=== PATIENT | male | born 1990 | race Caucasian/White ===

== ENCOUNTER 2016-07-06 15:36 | Emergency (ER) | payer SELFPAY ==
[2016-07-06 15:47] VITALS: BP 163/67; PULSE 68; TEMP 98.5; BMI 33.7
--- NOTE | 2016-07-06 16:59 | PDOC ---
History of Present Illness - General Chief Complaint: Injury Stated Complaint: LT HAND PAIN Time Seen by Provider: 07/06/16 16:06 History Source: Patient Exam Limitations: No Limitations - History of Present Illness Initial Comments: 07/06/16 16:54 CC left hand painx 2 days post hearing snap in area of pain while wt lifting Occurred: reports: yesterday Severity: reports: mild Past History - Past Medical History Allergies/Adverse Reactions: Allergies Allergy/AdvReac Type Severity Reaction Status Date / Time No Known Allergies Allergy Verified 07/06/16 15:43 Home Medications: Ambulatory Orders No Home Medications 0 dose .ROUTE UTDICT 07/27/13 Ciprofloxacin [Cipro -] 500 mg PO Q12H #10 tablet 09/02/14 - Psycho/Social/Smoking Cessation Hx Anxiety: No Suicidal Ideation: No Smoking History: Current every day smoker Number of Cigarettes Smoked Daily: 3 Information on smoking cessation initiated: No Hx Alcohol Use: No Review of Systems - Review of Systems Constitutional: No: Chills, Fever, Malaise HEENTM: No: Symptoms Reported Respiratory: No: Symptoms reported, Cough Cardiac (ROS): No: Symptoms Reported ABD/GI: No: Symptoms Reported : No: Symptoms Reported Musculoskeletal: No: Symptoms Reported *Physical Exam - Vital Signs Last Vital Signs Temp Pulse Resp BP Pulse Ox 98.5 F 68 18 163/67 98 07/06/16 15:44 07/06/16 15:44 07/06/16 15:44 07/06/16 15:44 07/06/16 15:44 - Physical Exam General Appearance: Yes: Appropriately Dressed. No: Apparent Distress HEENT: negative: TMs Normal, Pharynx Normal Neck: positive: Supple. negative: Tender, Rigid Respiratory/Chest: positive: Lungs Clear Musculoskeletal: positive: Other (tender to area of 4th/5th MCs mid shaft with STS; flexion with some pain to area; nl extension) ED Treatment Course - RADIOLOGY Radiology Studies Ordered: Category Date Time Status HAND- LEFT [RAD] Stat Radiology 07/06/16 16:12 Completed Medical Decision Making - Medical Decision Making 07/06/16 16:58 xray read as negative; will splint x 3 days and re exam by ortho/ Dr Taylor *DC/Admit/Observation/Transfer Diagnosis at time of Disposition: Strain of hand, left Qualifiers: Encounter type: initial encounter Qualified Code(s): S66.912A - Strain of unspecified muscle, fascia and tendon at wrist and hand level, left hand, initial encounter - Discharge Dispostion Disposition: HOME Condition at time of disposition: Stable Admit: No - Referrals Referrals: Viola Pimentel MD [Primary Care Provider] - Christiano Taylor MD [Staff Physician] - - Patient Instructions Additional Instructions: wear splint x 3 days; see Dr Taylor oon Tuesday for reexam
== END 2016-07-06 17:06 | disposition home or self-care (01) ==
LOC: JERFT 15:36
PROC: 2W3DX1Z Immobilization of Left Lower Arm using Splint (ICD-10-PCS; principal; 2016-07-06)
DX: S66.812A Strain of other specified muscles, fascia and tendons at wrist and hand level, left hand, initial encounter (principal); X50.0XXA Overexertion from strenuous movement or load, initial encounter; Y93.B3 Activity, free weights; Y92.89 Other specified places as the place of occurrence of the external cause; Y99.8 Other external cause status; F17.210 Nicotine dependence, cigarettes, uncomplicated
CPT/HCPCS: 73130-TC-LT; 99281-25

== ENCOUNTER 2017-05-01 10:21 | Emergency (ER) | payer OTHER ==
[2017-05-01 10:30] VITALS: TEMP 98.3; BMI 33.0
--- NOTE | 2017-05-01 11:01 | PDOC ---
History of Present Illness - General Chief Complaint: Pain Stated Complaint: NAUSEA/VOMITING Time Seen by Provider: 05/01/17 10:42 - History of Present Illness Initial Comments: 05/01/17 10:57 26 y.o. male with no reported PMH presents with 1 day h/o of 4 episodes of NBNB emesis. Patient denies any associated abdominal cramping, fevers/chills but does note an episode of loose stools this morning prior to presentation. Patient denies any testicular/scrotal pain and dysuria/hematuria. Patient has been tolerating PO intake. Patient states he had huertas last night for dinner and he believes this is cause of his symptoms. Patient note a prior episode of similar symptoms associated with his huertas consumption. NKDA Surgical: denies Social: 1/2-1 ppd, denies alcohol, denies alcohol, denies recreational drugs Past History - Past Medical History Allergies/Adverse Reactions: Allergies Allergy/AdvReac Type Severity Reaction Status Date / Time No Known Allergies Allergy Verified 05/01/17 10:27 Home Medications: Ambulatory Orders No Home Medications 0 dose .ROUTE UTDICT 07/27/13 COPD: No DVT: No - Suicide/Smoking/Psychosocial Hx Smoking History: Current every day smoker Have you smoked in the past 12 months: No Number of Cigarettes Smoked Daily: 6 Information on smoking cessation initiated: Yes 'Breaking Loose' booklet given: 05/01/17 Hx Alcohol Use: No Drug/Substance Use Hx: No Substance Use Type: None Review of Systems - Review of Systems Constitutional: No: Chills, Fever HEENTM: No: Recent change in vision Respiratory: No: Cough, Shortness of Breath Cardiac (ROS): No: Chest Pain, Lightheadedness, Palpitations, Syncope ABD/GI: Yes: Vomiting *Physical Exam - Vital Signs Last Vital Signs Temp Pulse Resp BP Pulse Ox 98.3 F 73 18 128/66 100 05/01/17 10:27 05/01/17 10:27 05/01/17 10:27 05/01/17 10:27 05/01/17 10:27 - Physical Exam General Appearance: Yes: Nourished, Appropriately Dressed HEENT: positive: EOMI, ROBERTO Neck: positive: Trachea midline, Supple Respiratory/Chest: positive: Lungs Clear Cardiovascular: positive: S1, S2 Gastrointestinal/Abdominal: positive: Normal Bowel Sounds, Tender (roving abdominal tenderness on deep palpation), Soft. negative: Distended, Guarding, Rebound, Tenderness, Hernia, Mass Extremity: positive: Normal Capillary Refill, Normal Inspection Integumentary: positive: Normal Color, Dry, Warm Neurologic: positive: Fully Oriented, Alert ED Treatment Course - LABORATORY CBC & Chemistry Diagram: 05/01/17 11:25 05/01/17 11:25 Medical Decision Making - Medical Decision Making 05/01/17 11:24 26 y.o. male presents with multiple episodes of NBNB emesis. Abdominal U/S shows possible fatty liver disease c/w patient's complaint of heavy fat consumption. Will discharge patient home with return precautions and instruction to f/u with PMD. *DC/Admit/Observation/Transfer Diagnosis at time of Disposition: Vomiting - Discharge Dispostion Disposition: HOME Condition at time of disposition: Good Admit: No - Referrals - Patient Instructions Printed Discharge Instructions: DI for Nausea -- Adult Additional Instructions: You were evaluated today for vomiting. An ultrasound of your abdomen showed concerning findings, however we recommend you limit alcohol consumption and stop smoking. Please make an appointment with your primary care doctor in the next 24-48 hours. Return to the Emergency Department for any new/worsening/ concerning symptoms. - Post Discharge Activity
[2017-05-01] MEDS ORDERED: ONDANSETRON 4 MG/2 ML VIAL IVPUSH ONE (11:04)
[2017-05-01] MEDS ORDERED: SODIUM CHLORIDE 0.9% 500 ML INFUS.BAG IV ONE (11:06)
[2017-05-01] MEDS ORDERED: ONDANSETRON 4 MG/2 ML VIAL ONE (11:32)
[2017-05-01 11:36] LABS: BASO % 0.4 % (0-2.0); EOS % 1.6 % (0-4.5); HEMATOCRIT 43.1 % (35.4-49); HEMOGLOBIN 14.9 GM/dL (11.7-16.9); LYMPH % 31.7 % (8-40); MCH 31.1 pg (25.7-33.7); MCHC 34.5 g/dl (32.0-35.9); MEAN CELL VOLUME 90.3 fl (80-96); MEAN PLT VOLUME 7.7 fl (7.5-11.1); NEUT % 59.3 % (42.8-82.8); PLATELET COUNT 262 K/MM3 (134-434); RBC 4.78 M/mm3 (4.00-5.60); RDW 12.7 % (11.9-15.9); WHITE BLOOD COUNT 6.2 K/mm3 (4.0-10.0)
--- NOTE | 2017-05-01 11:47 | PDOC ---
Attending Attestation - Resident Resident Name: Giulia Pablo - ED Attending Attestation I have performed the following: I have examined & evaluated the patient, The case was reviewed & discussed with the resident, I agree w/resident's findings & plan, Exceptions are as noted - HPI HPI: 26 yo M no significant PMH presents with abd cramping, N/V/D since last night. He states he had similar symptoms with food poisoning in the past. He states he went to a new restaurant last night, had a dish that is oily, now with diffuse abd cramping. He had NBNB vomiting, loose stools all night. No fever. No known sick contacts. - Physicial Exam PE: GENERAL: Awake, alert, and fully oriented, in no acute distress HEAD: No signs of trauma EYES: PERRLA, EOMI, sclera anicteric, conjunctiva clear ENT: Auricles normal inspection, hearing grossly normal, nares patent, oropharynx clear without exudates. Moist mucosa NECK: Normal ROM, supple, no lymphadenopathy, JVD, or masses LUNGS: Breath sounds equal, clear to auscultation bilaterally. No wheezes, and no crackles HEART: Regular rate and rhythm, normal S1 and S2, no murmurs, rubs or gallops ABDOMEN: Soft, +Mild LLQ tenderness, hyperactive bowel sounds. No guarding, no rebound. No masses EXTREMITIES: Normal range of motion, no edema. No clubbing or cyanosis. No cords, erythema, or tenderness NEUROLOGICAL: Cranial nerves II through XII grossly intact. Normal speech, normal gait SKIN: Warm, Dry, normal turgor, no rashes or lesions noted. - Medical Decision Making Pt is well-appearing, presents with abd pain, N/V/D after a heavy meal. Initial exam with RUQ tenderness, now with LLQ. DDx includes biliary colic, food poisoning, gastroenteritis. Will give IV hydration, GI cocktail, and obtain ultrasound.
[2017-05-01 11:58] LABS: ALBUMIN 3.9 g/dl (3.4-5.0); ANION GAP 7 (8-16); BLOOD UREA NITROGEN 17 mg/dL (7-18); CALCIUM 8.6 mg/dL (8.5-10.1); CHLORIDE 108 mmol/L (98-107); CO2 26 mmol/L (21-32); CREATININE 0.9 mg/dL (0.7-1.3); GLUCOSE,RANDOM 94 mg/dL (74-106); LIPASE 85 U/L (73-393); POTASSIUM 4.4 mmol/L (3.5-5.1); SGOT/AST 21 U/L (15-37); SGPT/ALT 45 U/L (12-78); SODIUM 141 mmol/L (136-145); TOT PROT 7.2 g/dl (6.4-8.2)
[2017-05-01 11:59] LABS: ALK PHOS 109 U/L (45-117)
[2017-05-01 12:01] LABS: BILIRUBIN,TOTAL < 0.1 mg/dL (0.2-1.0)
[2017-05-01 13:02] VITALS: BP 128/73; PULSE 60
== END 2017-05-01 13:02 | disposition home or self-care (01) ==
LOC: JER 10:21
PROC: 3E033GC Introduction of Other Therapeutic Substance into Peripheral Vein, Percutaneous Approach (ICD-10-PCS; principal; 2017-05-01)
PROC: 3E0337Z Introduction of Electrolytic and Water Balance Substance into Peripheral Vein, Percutaneous Approach (ICD-10-PCS; 2017-05-01)
DX: R11.2 Nausea with vomiting, unspecified (principal); F17.210 Nicotine dependence, cigarettes, uncomplicated
CPT/HCPCS: 36415; 76705-TC; 80053; 83690; 85025; 99282-25

== ENCOUNTER 2019-01-16 07:29 | Emergency (ER) | payer SELFPAY ==
[2019-01-16 07:36] VITALS: BP 125/64; PULSE 96; TEMP 98.3; BMI 32.5
[2019-01-16] MEDS ORDERED: KETOROLAC TROMETHAMINE 60 MG/2 ML VIAL IM ONE (08:22)
--- NOTE | 2019-01-16 08:22 | PDOC ---
History of Present Illness - General Chief Complaint: Pain, Acute Stated Complaint: SHOULDER AND NECK PAIN Time Seen by Provider: 01/16/19 08:03 - History of Present Illness Initial Comments: 01/16/19 08:20 CHIEF COMPLAINT: back pain HISTORY OF PRESENT ILLNESS: 28 yo M with no significant PMH presents to ED with c/o of pain "between spine and shoulder blades" since last night after doing physical therapy and [employer]. Patient reports he has had the pain in the past but not as severe. Pain is described as a sharp pain "like a pinched nerve or something", worsened with flexion of his neck or movement of his arms. Patient denies any loss of sensation to extremities, loss of bowel or bladder function. No recent travel or sick contacts. PAST MEDICAL HISTORY: Denies past medical history FAMILY HISTORY: Denies SOCIAL HISTORY: Denies tobacco, alcohol, illicit drug use. SURGICAL HISTORY: Denies ALLERGIES: No known drug allergies REVIEW OF SYSTEMS General/Constitutional: Denies fever or chills. Denies weakness, weight change. HEENT: Denies change in vision. Denies ear pain or discharge. Denies sore throat. Cardiovascular: Denies chest pain or shortness of breath. Respiratory: Denies cough, wheezing, or hemoptysis. Gastrointestinal: Denies nausea, vomiting, diarrhea or constipation. Denies rectal bleeding. Genitourinary: Denies dysuria, frequency, or change in urination. Musculoskeletal: "Pain between shoulder blades and spine." Skin and breasts: Denies rash or easy bruising. Neurologic: Denies headache, vertigo, loss of consciousness, or loss of sensation. Psychiatric: Denies depression or anxiety. PHYSICAL EXAM General Appearance: Well-appearing, appropriately dressed. No apparent distress , no intoxication. HEENT: EOMI, PERRLA, normal ENT inspection, normal voice, TMs normal, pharynx normal. No conjunctival pallor. No photophobia, scleral icterus. Neck: Supple. Trachea midline. No tenderness, rigidity, carotid bruit, stridor , lymphadenopathy, or thyromegaly. Respiratory/Chest: Lungs CTAB. No shortness of breath, chest tenderness, respiratory distress, accessory muscle use. No crackles, rales, rhonchi, stridor , wheezing, dullness Cardiovascular: RRR. S1, S2. No JVD, murmur, bradycardia, tachycardia. Vascular Pulses: Dorsalis-Pedis (R): 2+, Dorsalis-Pedis (L): 2+ Gastrointestinal/Abdominal: Normal bowel sounds. Abdomen soft, non-distended. No tenderness or rebound tenderness. No organomegaly, pulsatile mass, guarding , hernia, hepatomegaly, splenomegaly. Lymphatic: No adenopathy, tenderness. Musculoskeletal/Extremities: Mild tenderness to b/l latissimus dorsi. Normal inspection. FROM of all extremities, normal capillary refill. Pelvis Stable. No CVA tenderness. No tenderness to extremities, pedal edema, swelling, erythema or deformity. Integumentary: Appropriate color, dry, warm. No cyanosis, erythema, jaundice or rash Neurologic: cnp II-XII intact. Fully oriented, alert. Appropriate mood/affect. Motor strength 5/5. No appreciable EOM palsy, facial droop or sensory deficit. 01/16/19 08:22 Past History - Past Medical History Allergies/Adverse Reactions: Allergies Allergy/AdvReac Type Severity Reaction Status Date / Time No Known Allergies Allergy Verified 01/16/19 07:36 Home Medications: Ambulatory Orders No Home Medications 0 dose .ROUTE UTDICT 07/27/13 Cyclobenzaprine HCl 10 mg PO HS #10 tablet 01/16/19 Diclofenac Sodium [Voltaren -] 75 mg PO BID #20 tablet. 01/16/19 COPD: No DVT: No - Psycho Social/Smoking Cessation Hx Smoking History: Current every day smoker Have you smoked in the past 12 months: No Number of Cigarettes Smoked Daily: 6 Information on smoking cessation initiated: No 'Breaking Loose' booklet given: 05/01/17 Hx Alcohol Use: No Drug/Substance Use Hx: No Substance Use Type: None *Physical Exam - Vital Signs Last Vital Signs Temp Pulse Resp BP Pulse Ox 98.3 F 96 H 16 125/64 100 01/16/19 07:32 01/16/19 07:32 01/16/19 07:32 01/16/19 07:32 01/16/19 07:32 Medical Decision Making - Medical Decision Making 01/16/19 08:24 28 yo M with no significant PMH presents to ED with c/o of pain "between spine and shoulder blades" since last night after doing physical therapy and [employer]. -Toradol Discharge - Discharge Information Problems reviewed: Yes Clinical Impression/Diagnosis: Muscle spasm Condition: Stable Disposition: HOME - Admission No - Additional Discharge Information Prescriptions: Cyclobenzaprine HCl 10 mg PO HS #10 tablet Diclofenac Sodium [Voltaren -] 75 mg PO BID #20 tablet.dr - Follow up/Referral Referrals: Atul Ruff DO [Staff Physician] - - Patient Discharge Instructions Patient Printed Discharge Instructions: DI for Back Spasm Additional Instructions: Please take medication as prescribed. As discussed, if your symptoms do not improve in 5-7 days, please follow up with an orthopedics for further evaluation and a possible MRI or physical therapy. If you experience any loss of sensation to your extremities, any loss of bowel or bladder function, any swelling or increased pain to your leg, please return to the ER. - Post Discharge Activity Work/Back to School Note: Back to Work
[2019-01-16] MEDS ORDERED: KETOROLAC TROMETHAMINE 60 MG/2 ML VIAL ONE (08:31)
== END 2019-01-16 10:28 | disposition home or self-care (01) ==
LOC: JERFT 07:29 → JER 07:29 → JERFT 10:28
PROC: 3E0233Z Introduction of Anti-inflammatory into Muscle, Percutaneous Approach (ICD-10-PCS; principal; 2019-01-16)
DX: M62.838 Other muscle spasm (principal)
CPT/HCPCS: 99281-25

== ENCOUNTER 2019-09-30 19:56 | Emergency (ER) | payer OTHER ==
--- NOTE | 2019-09-30 19:58 | PDOC ---
Rapid Medical Evaluation Medical Evaluation: Allergies Allergy/AdvReac Type Severity Reaction Status Date / Time No Known Allergies Allergy Verified 01/16/19 07:36 09/30/19 19:57 I have performed a brief in-person evaluation of this patient. CC: acute on chronic right calf pain PE: No focal findings. Orders: nothing Patient will proceed to ED for further evaluation. Discharge Disposition - Diagnosis Right calf pain - Referrals - Patient Instructions - Post Discharge Activity
[2019-09-30 20:12] VITALS: BP 148/75; PULSE 82; TEMP 98.5; BMI 32.5
--- NOTE | 2019-09-30 20:58 | PDOC ---
History of Present Illness - General Chief Complaint: Pain Stated Complaint: LEG PAIN Time Seen by Provider: 09/30/19 19:58 History Source: Patient Exam Limitations: No Limitations - History of Present Illness Initial Comments: 09/30/19 20:55 28-year-old male denies past medical history complaining of intermittent right calf pain x 8 months. Over the past 2 weeks patient has been running 4-5 times a week, ran 5 miles 2 days ago and began feeling soreness to the area. Patient is a [employer] and 2 days ago also worked 8 hours without sitting down. Denies chest pain, shortness of breath, palpitations, dizziness, abdominal pain or any other complaint. Patient has been resting the area, applying ice. Requesting a note for work. Has not taken any pain medication. ROS: as above PE: GENERAL: well-appearing, NAD HEAD: NCAT EYES: Pupils equal, round and reactive to light, sclera anicteric, conjunctiva clear ENT: pharynx: no erythema, no exudate, uvula midline NECK: supple CHEST: nontender RESP: clear, no w/r/r CARDIO: rrr, no m/g/r ABD: +BS, soft, nontender, non distended BACK: no midline spinal ttp, no CVAT EXTREMITIES: Normal range of motion, no tenderness to palpation over R calf, no swelling noted NEUROLOGICAL: Normal speech, walking with a slight limp SKIN: Warm, Dry Is this a multiple visit Asthma Patient?: No Past History - Medical History Allergies/Adverse Reactions: Allergies Allergy/AdvReac Type Severity Reaction Status Date / Time No Known Allergies Allergy Verified 01/16/19 07:36 Home Medications: Ambulatory Orders No Home Medications 0 dose .ROUTE UTDICT 07/27/13 Cyclobenzaprine HCl 10 mg PO HS #10 tablet 01/16/19 Diclofenac Sodium [Voltaren -] 75 mg PO BID #20 tablet. 01/16/19 COPD: No DVT: No - Psycho-Social/Smoking History Smoking History: Former smoker Have you smoked in the past 12 months: No Number of Cigarettes Smoked Daily: 6 Information on smoking cessation initiated: No 'Breaking Loose' booklet given: 05/01/17 - Substance Abuse Hx (Audit-C & DAST Scrn) How often the patient has a drink containing alcohol: Never Score: In Men: 4 or > Positive; In Women: 3 or > Positive: 0 Screen Result (Pos requires Nsg. Audit-10AR): Negative In the last yr the pt used illegal drug/Rx for NonMed reason: No Score: Yes response is considered Positive: 0 Screen Result (Positive result requires Nsg. DAST-10): Negative *Physical Exam - Vital Signs Last Vital Signs Temp Pulse Resp BP Pulse Ox 98.5 F 82 19 148/75 99 09/30/19 20:01 09/30/19 20:01 09/30/19 20:01 09/30/19 20:01 09/30/19 20:01 Medical Decision Making - Medical Decision Making 09/30/19 20:57 28-year-old male denies past medical history complaining of intermittent right calf pain x 8 months. Over the past 2 weeks patient has been running 4-5 times a week, ran 5 miles 2 days ago and began feeling soreness to the area. Patient is a [employer] and 2 days ago also worked 8 hours without sitting down. Denies chest pain, shortness of breath, palpitations, dizziness, abdominal pain or any other complaint. Patient has been resting the area, applying ice. Requesting a note for work. Has not taken any pain medication. Patient declines pain medication Note for work provided Return precautions discussed Discharge - Discharge Information Problems reviewed: Yes Clinical Impression/Diagnosis: Right calf pain Condition: Stable Disposition: HOME - Admission No - Follow up/Referral - Patient Discharge Instructions Additional Instructions: Rest the area, apply ice over the calf If you develop swelling, increasing pain to the area return to ED Follow-up with your doctor within 1 to 2 weeks - Post Discharge Activity Work/Back to School Note: Back to Work
== END 2019-09-30 21:03 | disposition home or self-care (01) ==
LOC: JERFT 19:56 → JER 19:56 → JERFT 21:03
DX: M79.661 Pain in right lower leg (principal)
CPT/HCPCS: 99283-25